=== PATIENT | male | born 2000 | race Caucasian/White ===

== ENCOUNTER 2022-11-28 22:26 | Emergency (ER) | payer SELFPAY ==
[~2022-11-28] VITALS: Ht 177.8 cm; Wt 79.2 kg
[2022-11-28 22:28] VITALS: BP 144/74
== END 2022-11-28 23:37 | disposition home or self-care (01) ==
LOC: M ED 22:26
DX: S60.412A Abrasion of right middle finger, initial encounter (principal); W22.8XXA Striking against or struck by other objects, initial encounter; F17.200 Nicotine dependence, unspecified, uncomplicated